=== PATIENT | male | born 2000 | race Caucasian/White ===

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

== ENCOUNTER 2024-07-24 17:50 | Emergency (ER) | payer BC ==
[~2024-07-24] VITALS: Ht 172.7 cm; Wt 61.2 kg
[2024-07-24] MEDS ORDERED: PANTOPRAZOLE 40 MG VIAL ONE (21:37)
[2024-07-24] MEDS ORDERED: ONDANSETRON HCL/PF 4 MG/2 ML VIAL ONE (21:37)
[2024-07-24] MEDS ORDERED: KETOROLAC TROMETHAMINE INJ 30 MG/ML VIAL ONE (21:37)
[2024-07-24] MEDS ORDERED: FAMOTIDINE/PF INJ 20 MG/2 ML VIAL IV ONE (21:38)
[2024-07-24] MEDS ORDERED: IOHEXOL-300 100 ML VIAL IV ONE (21:40)
[2024-07-24] MEDS ORDERED: CT SWABBABLE VALVE TRANS SET 1 EA INFUS.SET MC ONE (21:40)
[2024-07-24] MEDS ORDERED: IV NS 0.9% 250 ML IV ONE (21:41)
[2024-07-24 21:45] LABS: BASOPHILS # (AUTO) 0.1 K/uL (0.0-0.2); BASOPHILS % (AUTO) 0.7 % (0.0-2.0); EOSINOPHILS # (AUTO) 0.1 K/uL (0.0-0.7); EOSINOPHILS % (AUTO) 1.1 % (0.0-6.0); HEMATOCRIT 41 % (39-51); HEMOGLOBIN 14.1 g/dL (13.5-17.5); LYMPHOCYTES # (AUTO) 2.8 K/uL (0.8-4.8); MEAN CORPUSCULAR HEMOGLOBIN 32 PG (26.0-33.0); MEAN CORPUSCULAR HGB CONC 34 g/dl (31.0-36.0); MEAN CORPUSCULAR VOLUME 94 fL (80-96); MONOCYTES # (AUTO) 0.7 K/uL (0.1-1.30); MONOCYTES % (AUTO) 9.1 % (2.0-12.0); NEUTROPHILS % (AUTO) 52.1 % (43.0-81.0); PLATELET COUNT (AUTO) 239 K/uL (150-450); RED BLOOD CELL COUNT(AUTO) 4.39 MIL/uL (4.5-6.0); WHITE BLOOD COUNT (AUTO) 7.6 K/uL (4.3-11.0)
[2024-07-24] MEDS: PANTOPRAZOLE 40 MG VIAL IV ONE (21:47)
[2024-07-24] MEDS: IV NS 0.9% 1,000 ML BAG IV ONE (21:47)
[2024-07-24] MEDS: FAMOTIDINE/PF INJ 20 MG/2 ML VIAL IV ONE (21:47)
[2024-07-24] MEDS: KETOROLAC TROMETHAMINE INJ 30 MG/ML VIAL IV ONE (21:47)
[2024-07-24] MEDS: ONDANSETRON HCL/PF 4 MG/2 ML VIAL IVP ONE (21:47)
[2024-07-24 21:49] LABS: APPEARANCE,URINE Clear (CLEAR); BILIRUBIN,URINE Negative (NEGATIVE); BLOOD, URINE Negative Ery/uL (NEGATIVE); COLOR,URINE YELLOW (YELLOW); KETONES,URINE 15 mg/dL (NEGATIVE); LEUKOCYTE ESTERASE ,URINE Negative (NEGATIVE); NITRITE, URINE Negative (NEGATIVE); PH,URINE 5.5 (5.0-8.0); PROTEIN,URINE Negative (NEGATIVE); UGLUCOSE Negative (NEGATIVE); UROBILINOGEN,URINE 0.2 EU/dL (0.2)
[2024-07-24 21:55] LABS: CALCIUM, SERUM 8.9 mg/dL (8.5-10.1); CREATININE 1.2 mg/dL (0.6-1.3); POTASSIUM 3.8 mmol/L (3.5-5.1)
[2024-07-24 21:58] LABS: ADD URINE CULTURE NO; BACTERIA,URINE Rare /HPF (None Seen); MUCUS,URINE Few /LPF (None Seen); RBC,URINE 0-2 /HPF (0-2); SQUAMOUS EPITHELIAL CELL,UR Rare /HPF (None Seen); WBC,URINE 0-2 /HPF (0-3)
[2024-07-24 22:01] LABS: ALBUMIN 4.2 g/dL (3.4-5.0); BILIRUBIN,DIRECT 0.2 mg/dL (0.0-0.2); BILIRUBIN,TOTAL 0.5 mg/dL (0.2-1.0); TOTAL PROTEIN, SERUM 7.2 g/dL (6.4-8.2)
[2024-07-25] MEDS ORDERED: FAMO20TA80 PO (01:21)
[2024-07-25] MEDS ORDERED: PANT40TA49 PO (01:21)
[2024-07-25] MEDS ORDERED: ONDA4TAB5 PO (01:21)
[2024-07-25 01:41] VITALS: BP 100/59; TEMP 98.1; O2SAT 97
== END 2024-07-25 01:41 | disposition home or self-care (01) ==
LOC: ER 17:55
DX: R11.10 Vomiting, unspecified (principal); K50.90 Crohn's disease, unspecified, without complications; R10.12 Left upper quadrant pain
CPT/HCPCS: 99285; 74177; 96374; 96375; 71045; 96361; 85025; 80048; 83690; 80076; 85652; 81001; 36415; J1885; J3490; J2405; J7030; J7050; J2470; Q9967